=== PATIENT | female | born 1975 | race Caucasian/White ===

== ENCOUNTER 2016-10-28 13:52 | Emergency (ER) | payer OTHER ==
[~2016-10-28] VITALS: Ht 162.6 cm; Wt 98.5 kg
[~2016-10-28 13:52] MED LIST: CARAFATE100 MG/ML PO; FLEXERIL5 MG PO; NAPROSYN500 MG PO; OMEPRAZOLE40 M1 PO; PREDNISONE50 MG PO; PROAIR HFA8.5 GM IH; TRAMADOL HCL50 MG PO; VICODIN,LORT1 TABLET PO
[2016-10-28] MEDS ORDERED: NAPROXEN500 MG PO (15:20)
[2016-10-28] MEDS ORDERED: PERCOCET 5/31 TABLET PO (15:20)
[2016-10-28] MEDS ORDERED: CLINDAMYCIN HC150 MG PO (15:20)
[2016-10-28 15:39] VITALS: BP 110/69
== END 2016-10-28 15:46 | disposition home or self-care (01) ==
LOC: EME 13:52
PROC: 0H9RXZZ Drainage of Toe Nail, External Approach (ICD-10-PCS; principal; 2016-10-28)
DX: L03.031 Cellulitis of right toe (principal); L60.0 Ingrowing nail
CPT/HCPCS: 87070; 87075; 87205; 99281; 99284

== ENCOUNTER 2016-10-31 08:59 | Emergency (ER) | payer OTHER ==
[~2016-10-31] VITALS: Ht 165.1 cm; Wt 100.2 kg
[~2016-10-31 08:59] MED LIST changes: +CLINDAMYCIN HC150 MG PO; +NAPROXEN500 MG PO; +PERCOCET 5/31 TABLET PO
[2016-10-31 09:06] VITALS: BP 121/71
== END 2016-10-31 09:40 | disposition home or self-care (01) ==
LOC: EME 08:59 → EXP 08:59
DX: Z48.01 Encounter for change or removal of surgical wound dressing (principal)
CPT/HCPCS: 99281; 99283

== ENCOUNTER 2016-11-29 12:22 | Emergency (ER) | payer OTHER ==
[~2016-11-29] VITALS: Ht 162.6 cm; Wt 94.0 kg
[2016-11-29 12:41] VITALS: BP 116/65
== END 2016-11-29 14:37 | disposition home or self-care (01) ==
LOC: EME 12:22 → RME 12:22 → EME 12:22 → RME 14:37
DX: S93.601A Unspecified sprain of right foot, initial encounter (principal); Y93.02 Activity, running; Y92.239 Unspecified place in hospital as the place of occurrence of the external cause; Y99.0 Civilian activity done for income or pay; Z88.1 Allergy status to other antibiotic agents; Z88.5 Allergy status to narcotic agent; K21.9 Gastro-esophageal reflux disease without esophagitis
CPT/HCPCS: 73630; 99281; 99283

== ENCOUNTER → 2017-02-27 | Outpatient (CLI) | payer OTHER | END | disposition home or self-care (01) | LOC: NUC 12:07 | DX: R10.11 Right upper quadrant pain (principal) | CPT/HCPCS: 78227; A9510 ==

== ENCOUNTER 2017-04-28 18:47 | Emergency (ER) | payer OTHER ==
[~2017-04-28] VITALS: Ht 162.6 cm; Wt 99.7 kg
[2017-04-28 20:08] LABS: EOSINOPHIL (%) 3.5 % (0-5); EOSINOPHIL COUNT 0.3 K/uL (0-0.3); HEMATOCRIT 35.7 % (36.0-46.0); IMMATURE GRANULOCYTE (%) 0.1 % (0.0-0.7); INSTRUMENT ABS NEUTROPHIL CT 4.5 K/uL; LYMPHOCYTE COUNT 2.7 K/uL (1.0-2.8); MCHC 34.2 G/DL (30.0-36.0); MCV 87.9 FL (83-99); MONOCYTE (%) 5.8 % (3-12); MONOCYTE COUNT 0.5 K/uL (0-0.8); NEUTROPHIL COUNT 4.5 K/uL (1.8-6.4); PLATELET COUNT 407 K/uL (156-360); RBC DIS.WIDTH-CV 13.3 % (11.8-14.6); RBC DIS.WIDTH-SD 43.6 % (39-53); RED BLOOD COUNT 4.06 M/uL (3.80-5.20)
[2017-04-28 20:29] LABS: CHLORIDE 100 mEq/L (99-109); POTASSIUM 3.4 mEq/L (3.7-5.4); SODIUM 140 mEq/L (136-147); TROP-I INTERPRETATION NEGATIVE; TROPONIN-I < 0.01 ng/mL (0.0-0.30)
[2017-04-28 20:31] LABS: GLUCOSE 102 mg/dL (70-99)
[2017-04-28 20:32] LABS: ANION GAP 12 MEQ/L (2-14); Estimated Average Glucose 111 mg/dL (70-123); HEMOGLOBIN A1c (GLYCOHEMOGLOB) 5.5 % HGB (Below 5.7)
[2017-04-28 20:33] LABS: TOTAL BILIRUBIN 0.2 mg/dL (0.0-1.0)
[2017-04-28 20:34] LABS: ALKALINE PHOSPHATASE 83 IU/L (3-129)
[2017-04-28 20:35] LABS: GFR ESTIMATE (CALCULATED) > 59 mL/min/
[2017-04-28 20:36] LABS: UREA NITROGEN (BUN) 14 mg/dL (9-23)
[2017-04-28 20:43] LABS: QUANTITATIVE HCG < 4.0 MIU/ML
[2017-04-28 21:14] LABS: HDL CHOLESTEROL 61 MG/DL (Desirable>=50); LDL CHOLESTEROL 114 mg/dL (Desirable<100); NON-HDL CHOLESTEROL 141 mg/dL (Desirable<160); TOTAL CHOLESTEROL 202 mg/dL (Desirable<200); TRIGLYCERIDES 136 MG/DL (Normal: <150)
[2017-04-28 22:06] LABS: ADD MIUA? YES; BILIRUBIN NEGATIVE; BLOOD SMALL; COLOR STRAW ((YELLOW)); GLUCOSE (STRIP) NEGATIVE; KETONES NEGATIVE; LEUKOCYTES NEGATIVE; NITRITE NEGATIVE; PROTEIN (STRIP) NEGATIVE; SPECIFIC GRAVITY 1.011 (1.000-1.030); UROBILINOGEN 0.2 MG/DL (0.2-1.0)
[2017-04-28 22:10] LABS: BACTERIA NONE SEEN /HPF; EPITHELIAL CELLS RARE /HPF; MUCUS TRACE /LPF; RED BLOOD CELLS 0-5 /HPF (0-5); UCUL ADDED? NO; WHITE BLOOD CELLS 0-5 /HPF (0-5)
[2017-04-29 00:15] VITALS: BP 101/71
== END 2017-04-29 00:16 | disposition left against medical advice (07) ==
LOC: EME 18:47
PROVIDERS: Emergency Medicine
DX: R20.2 Paresthesia of skin (principal); R42 Dizziness and giddiness; Z53.20 Procedure and treatment not carried out because of patient's decision for unspecified reasons; J45.909 Unspecified asthma, uncomplicated
CPT/HCPCS: 70450; 70496; 70498; 71020; 80053; 80061; 81003; 83036; 84484; 84702; 85025; 93005; 99281; 99285; J7030

== ENCOUNTER 2017-10-05 14:52 | Emergency (ER) | payer OTHER ==
[~2017-10-05] VITALS: Ht 162.6 cm; Wt 100.0 kg
[2017-10-05 15:23] VITALS: BP 139/83
[2017-10-05 15:24] LABS: BASOPHIL (%) 0.4 % (0-1); EOSINOPHIL (%) 2.5 % (0-5); EOSINOPHIL COUNT 0.2 K/uL (0-0.3); HEMATOCRIT 34.1 % (36.0-46.0); HEMOGLOBIN 11.5 G/DL (11.9-15.5); IMMATURE GRANULOCYTE (%) 0.3 % (0.0-0.7); LYMPHOCYTE (%) 42.3 % (15-42); LYMPHOCYTE COUNT 3.1 K/uL (1.0-2.8); MCH 29.6 PG (29.0-34.0); MCHC 33.7 G/DL (30.0-36.0); MCV 87.7 FL (83-99); MONOCYTE COUNT 0.5 K/uL (0-0.8); NEUTROPHIL (%) 47.5 % (45-76); NEUTROPHIL COUNT 3.5 K/uL (1.8-6.4); PLATELET COUNT 400 K/uL (156-360); RBC DIS.WIDTH-CV 13.6 % (11.8-14.6); RBC DIS.WIDTH-SD 43.5 % (39-53); RED BLOOD COUNT 3.89 M/uL (3.80-5.20); WHITE BLOOD COUNT 7.3 K/uL (4.1-10.2)
[2017-10-05 15:38] LABS: CHLORIDE 105 mEq/L (99-109); SODIUM 137 mEq/L (136-147)
[2017-10-05 15:40] LABS: GLUCOSE 104 mg/dL (70-99); TOTAL PROTEIN 7.7 g/dL (6.4-8.3)
[2017-10-05 15:42] LABS: TOTAL BILIRUBIN 0.2 mg/dL (0.0-1.0)
[2017-10-05 15:43] LABS: ALKALINE PHOSPHATASE 74 IU/L (3-129)
[2017-10-05 15:44] LABS: CREATININE 0.7 mg/dL (0.6-1.3); GFR ESTIMATE (CALCULATED) > 59 mL/min/
[2017-10-05 15:45] LABS: AST (GOT) 19 IU/L (2-34); DIRECT BILIRUBIN 0.1 mg/dL (0.0-0.3); UREA NITROGEN (BUN) 15 mg/dL (9-23)
[2017-10-05 15:47] LABS: ALT (GPT) 11 IU/L (3-49)
== END 2017-10-05 15:24 | disposition home or self-care (01) ==
LOC: EME 14:52
PROVIDERS: Physician Assistant
DX: S61.233A Puncture wound without foreign body of left middle finger without damage to nail, initial encounter (principal); J45.909 Unspecified asthma, uncomplicated; H81.09 Meniere's disease, unspecified ear; W46.0XXA Contact with hypodermic needle, initial encounter; Y99.0 Civilian activity done for income or pay; Z57.8 Occupational exposure to other risk factors; Z77.21 Contact with and (suspected) exposure to potentially hazardous body fluids; Z88.5 Allergy status to narcotic agent; Z88.1 Allergy status to other antibiotic agents
CPT/HCPCS: 80048; 80076; 85025; 99281; 99283

== ENCOUNTER → 2018-02-12 | Outpatient (CLI) | payer OTHER | END | disposition home or self-care (01) | LOC: RAD 14:55 | DX: Z87.01 Personal history of pneumonia (recurrent) (principal) | CPT/HCPCS: 71046 ==